=== PATIENT | female | born 1945 | race Caucasian/White ===

== ENCOUNTER 2020-09-29 06:34 | Observation (INO) | payer MEDICARE ==
[2020-09-27 12:54] LABS: BASOPHILS % 0.4 % (0.0-1.0); EOSINOPHILS % 0.6 % (0.0-6.0); HEMATOCRIT 43.4 % (34.2-44.1); LYMPHOCYTES # (AUTO) 1.1 (1.0-3.2); LYMPHOCYTES % 22.2 % (18.0-39.1); MEAN CORPUSCULAR HEMOGLOBIN 31.2 pg (28-32); MEAN CORPUSCULAR HGB CONC 32.3 g/dL (31-35); MEAN CORPUSCULAR VOLUME 96.7 fL (81-99); MONOCYTES # (AUTO) 0.3 (0.2-0.8); MONOCYTES % 6.3 % (4.4-11.3); NEUTROPHILS # (AUTO) 3.6 (2.1-6.9); NEUTROPHILS % 70.3 % (38.7-80.0); PLATELET COUNT 170 x10e3/uL (140-360); RED BLOOD COUNT 4.49 x10e6/uL (3.6-5.1)
[2020-09-27 13:18] LABS: INR 0.94; PROTHROMBIN TIME 13.1 seconds (11.9-14.5)
[2020-09-27 13:19] LABS: PARTIAL THROMBOPLASTIN TIME 24.2 seconds (23.8-35.5)
[2020-09-27 13:24] LABS: ANION GAP 14.1 mmol/L (8-16); BLOOD UREA NITROGEN 15 mg/dL (7-26); BUN/CREATININE RATIO 19 (6-25); CALCIUM 9.1 mg/dL (8.4-10.2); CARBON DIOXIDE 27 mmol/L (22-29); CHLORIDE 106 mmol/L (98-107); CREATININE, SERUM 0.79 mg/dL (0.57-1.11); EST GLOMERULAR FILTRATION RATE > 60 ML/MIN (60-); GLUCOSE 99 mg/dL (74-118); POTASSIUM 4.1 mmol/L (3.5-5.1); SODIUM 143 mmol/L (136-145)
[~2020-09-29] VITALS: Ht 162.6 cm; Wt 71.2 kg
[~2020-09-29 06:34] MED LIST: ACETAMINOPHEN 1000 MG/100 ML 100 ML IV ONE; AMBIEN5 MG PO; ATORVASTATIN CA10 MG PO; CALCIUM PO; CITALOPRAM PO; EFFIENT10 MG PO; FLEXERIL PO; HYDROCODONE PO; LIDOCAINE HCL (LTA) 4 ML SOLN ONE; PRILOSEC40 MG PO; TIZANIDINE HCL4 M1 PO; VITAMIN B12 PO
[2020-09-29] MEDS ORDERED: IBUPROFEN 800MG/ 200ML 200 ML IV ONE (06:37)
[2020-09-29] MEDS ORDERED: LIDOCAINE HCL (LTA) 4 ML SOLN ONE (06:37)
[2020-09-29] MEDS ORDERED: ACETAMINOPHEN 1000 MG/100 ML 100 ML IV ONE (06:37)
[2020-09-29] MEDS ORDERED: BUPIVACAINE 0.5%/EPI 30 ML SDV INJ ONE (06:47)
[2020-09-29] MEDS ORDERED: THROMBIN FOR SOLN 5,000 UNIT VIAL ONE (06:47)
[2020-09-29] MEDS ORDERED: VANCOMYCIN HCL 1 GM VIAL ONE (06:47)
[2020-09-29] MEDS ORDERED: CEFAZOLIN SOD 1 GM/NS 50ML 100 ML IV ONE (07:24)
[2020-09-29] MEDS ORDERED: HYDROCODON-ACE1 EA12 PO (10:28)
[2020-09-29] MEDS ORDERED: ZOLPIDEM TARTRATE 5 MG TAB PO PRN (10:30)
[2020-09-29] MEDS ORDERED: HYDROMORPHONE 2MG/ML 2 MG/ML ML IV PRN (10:30)
[2020-09-29] MEDS ORDERED: MAGNESIUM/ALUMINUM/SIMETHICONE 30 ML UDC PO PRN (10:30)
[2020-09-29] MEDS ORDERED: ACETAMINOPHEN 325 MG TAB PO PRN (10:30)
[2020-09-29] MEDS ORDERED: MORPHINE SULFATE 5 MG/ML VIAL IM PRN (10:30)
[2020-09-29] MEDS ORDERED: ONDANSETRON HCL INJ 2MG/ML 2ML 2 MG/ML VIAL IV PRN (10:30)
[2020-09-29] MEDS ORDERED: PROMETHAZINE HCL (IM) 25 MG/ML VIAL IM PRN (10:30)
[2020-09-29] MEDS ORDERED: CEPACOL SORE THROAT LOZENGES PO PRN (10:30)
[2020-09-29] MEDS ORDERED: MORPHINE SULFATE INJ 4 MG/ML INJ 1ML ONE (10:47)
[2020-09-29] MEDS ORDERED: ALBUTEROL/IPRATROPIUM 3 ML NEB ONE (10:51)
[2020-09-29] MEDS ORDERED: EPINEPHRINE 2.25% INH NEBU SOL 0.5 ML VIAL ONE (10:54)
[2020-09-29] MEDS ORDERED: LIDOCAINE HCL 2% LOCAL INJ 5 ML SDV VIAL INJ ONE (12:43)
[2020-09-29] MEDS ORDERED: SEVOFLURANE INHAL SOLN 250 ML PEN BTL ONE (12:43)
[2020-09-29] MEDS ORDERED: ONDANSETRON HCL INJ 2MG/ML 2ML 2 MG/ML VIAL ONE (12:43)
[2020-09-29] MEDS ORDERED: DEXAMETHASONE SOD PHOS INJ 4 MG/ML VIAL ONE (12:43)
[2020-09-29] MEDS ORDERED: ROCURONIUM BROMIDE 10 MG/ML 5ML VIAL IV ONE (12:43)
[2020-09-29] MEDS ORDERED: NEOSTIGMINE 1 MG/ML 10ML VIAL ONE (12:43)
[2020-09-29] MEDS ORDERED: PROPOFOL IV EMULSION 10 MG/ML 20 ML VIAL ONE (12:43)
[2020-09-29] MEDS ORDERED: GLYCOPYRROLATE INJ 0.2 MG/ML VIAL ONE (12:43)
[2020-09-29] MEDS ORDERED: FENTANYL CITRATE/PF 100MCG/2 ML INJ ONE (13:47)
[2020-09-29] MEDS ORDERED: CARISOPRODOL 350 MG TAB ONE (14:28)
[2020-09-29] MEDS: OXYCODONE/ACETAMINOPHEN 5-325 1 EACH TABLET PO PRN ×3 (14:28→23:10)
[2020-09-29] MEDS: CARISOPRODOL 350 MG TAB PO PRN ×2 (14:28→18:30)
[2020-09-29] MEDS ORDERED: OXYCODONE/ACETAMINOPHEN 5-325 1 EACH TABLET ONE (14:28)
[2020-09-29 15:17] VITALS: BP 132/70
[2020-09-29] MEDS: CEFAZOLIN SOD 1 GM/NS 50ML 50 ML IV SCH (17:20)
[2020-09-29] MEDS: LACTATED RINGER'S 1,000 ML IV SCH ×2 (17:20→18:50)
[2020-09-29 19:25] VITALS: BP 108/76
[2020-09-29 21:00] VITALS: BP 108/76
[2020-09-29] MEDS ORDERED: ZOLPIDEM TARTRATE 5 MG TAB PO SCH (21:00)
[2020-09-29] MEDS ORDERED: TIZANIDINE HCL 4 MG TAB PO SCH (21:00)
[2020-09-30] VITALS: BP 95/65
[2020-09-30] MEDS: CEFAZOLIN SOD 1 GM/NS 50ML 50 ML IV SCH ×2 (01:00→09:00)
[2020-09-30] MEDS: LACTATED RINGER'S 1,000 ML IV SCH (03:10)
[2020-09-30 04:00] VITALS: BP 92/57
[2020-09-30 08:30] VITALS: BP 108/61
[2020-09-30 08:39] VITALS: BP 108/61
[2020-09-30] MEDS ORDERED: ATORVASTATIN 10 MG TAB PO SCH ×2 (09:00→21:00)
[2020-09-30] MEDS: OXYCODONE/ACETAMINOPHEN 5-325 1 EACH TABLET PO PRN (09:27)
[2020-09-30] MEDS ORDERED: ZOLPIDEM TARTRATE 5 MG TAB PO PRN (12:15)
[2020-09-30 12:29] VITALS: BP 106/70
== END 2020-09-30 12:18 | disposition home or self-care (01) ==
LOC: OR 06:34 → PACU V 10:26 → MED/SURG3 15:00
PROVIDERS: ADMIT Neurological Surgery; ATTEND Neurological Surgery
DX: M51.16 Intervertebral disc disorders with radiculopathy, lumbar region (principal); Z20.822 Contact with and (suspected) exposure to COVID-19; Z01.818 Encounter for other preprocedural examination; M19.90 Unspecified osteoarthritis, unspecified site; E78.5 Hyperlipidemia, unspecified; I25.10 Atherosclerotic heart disease of native coronary artery without angina pectoris; Z95.5 Presence of coronary angioplasty implant and graft
CPT/HCPCS: 36415 ×2; 63047; 71046; 72020; 80048; 82948; 85025; 85610; 85730; 86850; 86900; 88304; 93005; G0378 ×2; J0131; J0690 ×2; J1100; J2001; J2270; J2405; J2704; J2710; J3370; J7121; U0002

== ENCOUNTER 2021-03-30 05:53 | Observation (INO) | payer MEDICARE ==
[2021-03-28 09:49] LABS: BASOPHILS % 0.6 % (0.0-1.0); EOSINOPHILS # (AUTO) 0.1 (0.0-0.4); EOSINOPHILS % 1.3 % (0.0-6.0); HEMATOCRIT 44.7 % (34.2-44.1); HEMOGLOBIN 14.6 g/dL (12.0-16.0); LYMPHOCYTES % 22.5 % (18.0-39.1); MEAN CORPUSCULAR HEMOGLOBIN 32.7 pg (28-32); MEAN CORPUSCULAR HGB CONC 32.7 g/dL (31-35); MONOCYTES # (AUTO) 0.4 (0.2-0.8); MONOCYTES % 9.1 % (4.4-11.3); NEUTROPHILS # (AUTO) 3.1 (2.1-6.9); NEUTROPHILS % 66.3 % (38.7-80.0); PLATELET COUNT 180 x10e3/uL (140-360); RED BLOOD COUNT 4.47 x10e6/uL (3.6-5.1); RED CELL DISTRIBUTION WIDTH 13.2 % (11.7-14.4)
[2021-03-28 10:18] LABS: CALCIUM 9.5 mg/dL (8.4-10.2); CREATININE, SERUM 0.91 mg/dL (0.57-1.11)
[2021-03-28 10:55] LABS: INR 0.93; PROTHROMBIN TIME 12.7 seconds (11.9-14.5)
[~2021-03-30] VITALS: Ht 162.6 cm; Wt 70.8 kg
[~2021-03-30 05:53] MED LIST changes: -ACETAMINOPHEN 1000 MG/100 ML 100 ML IV ONE; +HYDROCODON-ACE1 EA12 PO; -LIDOCAINE HCL (LTA) 4 ML SOLN ONE; +VIT D3 PO; +ZINC50 MG PO
[2021-03-30] MEDS ORDERED: SODIUM CHLORIDE 0.9% 50ML 50 ML ONE (06:40)
[2021-03-30] MEDS ORDERED: Vancomycin IV 1 GM VIAL ONE (07:11)
[2021-03-30] MEDS ORDERED: LIDOCAINE 1% W/EPINEPHRINE 20 ML VIAL ONE (07:11)
[2021-03-30] MEDS ORDERED: THROMBIN FOR SOLN 5,000 UNIT VIAL ONE (07:11)
[2021-03-30] MEDS ORDERED: LIDOCAINE HCL (LTA) 4 ML SOLN ONE (08:38)
[2021-03-30] MEDS ORDERED: SUGAMMADEX SODIUM 200 MG/2 ML VIAL IV ONE ×2 (09:14→09:34)
[2021-03-30] MEDS ORDERED: HYDROCODON-ACE1 EA12 PEG (09:36)
[2021-03-30] MEDS ORDERED: OXYCODONE/ACETAMINOPHEN 5-325 1 EACH TABLET PO PRN (09:45)
[2021-03-30] MEDS ORDERED: ZOLPIDEM TARTRATE 5 MG TAB PO PRN (09:45)
[2021-03-30] MEDS ORDERED: HYDROCODONE/APAP 7.5MG-325MG 1 EA TAB PO PRN (09:45)
[2021-03-30] MEDS ORDERED: CARISOPRODOL 350 MG TAB PO PRN (09:45)
[2021-03-30] MEDS ORDERED: CEPACOL SORE THROAT LOZENGES PO PRN (09:45)
[2021-03-30] MEDS ORDERED: MAGNESIUM/ALUMINUM/SIMETHICONE 30 ML UDC PO PRN (09:45)
[2021-03-30] MEDS ORDERED: PROMETHAZINE HCL (IM) 25 MG/ML VIAL IM PRN (09:45)
[2021-03-30] MEDS ORDERED: ACETAMINOPHEN 325 MG TAB PO PRN (09:45)
[2021-03-30] MEDS ORDERED: ONDANSETRON HCL INJ 2MG/ML 2ML 2 MG/ML VIAL IV PRN (09:45)
[2021-03-30] MEDS ORDERED: FENTANYL CITRATE/PF 100MCG/2 ML INJ ONE (09:58)
[2021-03-30] MEDS: LACTATED RINGER'S 1,000 ML IV SCH ×2 (10:43→17:35)
[2021-03-30] MEDS ORDERED: MORPHINE SULFATE INJ 4 MG/ML INJ 1ML IM PRN (10:45)
[2021-03-30] MEDS: HYDROMORPHONE 2MG/ML 2 MG/ML ML IV PRN ×2 (10:56→17:45)
[2021-03-30 11:20] VITALS: BP 145/80
[2021-03-30 11:31] VITALS: BP 138/74
[2021-03-30 13:54] VITALS: BP 138/74
[2021-03-30] MEDS: Cefazolin 1 GM in SODIUM CHLORIDE 0.9% 50ML 50 ML IV SCH ×2 (14:21→22:56)
[2021-03-30 16:07] VITALS: BP 127/75
[2021-03-30 20:00] VITALS: BP 131/77
[2021-03-30] MEDS ORDERED: TIZANIDINE HCL 4 MG TAB PO SCH (21:00)
[2021-03-30] MEDS ORDERED: ATORVASTATIN 10 MG TAB PO SCH (21:00)
[2021-03-31] VITALS: BP 128/77
[2021-03-31 01:40] VITALS: BP 127/77
[2021-03-31 04:00] VITALS: BP 122/76
[2021-03-31] MEDS: LACTATED RINGER'S 1,000 ML IV SCH (04:48)
[2021-03-31] MEDS: Cefazolin 1 GM in SODIUM CHLORIDE 0.9% 50ML 50 ML IV SCH (06:09)
[2021-03-31 08:39] VITALS: BP 116/70
[2021-03-31 10:31] VITALS: BP 116/70
== END 2021-03-31 10:53 | disposition home or self-care (01) ==
LOC: OR 05:53 → PACU V 10:03 → MED/SURG 10:18
PROVIDERS: ADMIT Neurological Surgery; ATTEND Neurological Surgery
DX: M43.12 Spondylolisthesis, cervical region (principal); E78.5 Hyperlipidemia, unspecified; J32.9 Chronic sinusitis, unspecified; I25.10 Atherosclerotic heart disease of native coronary artery without angina pectoris; Z95.5 Presence of coronary angioplasty implant and graft; Z87.891 Personal history of nicotine dependence; Z01.810 Encounter for preprocedural cardiovascular examination; Z01.812 Encounter for preprocedural laboratory examination; Z01.818 Encounter for other preprocedural examination
CPT/HCPCS: 20931; 22551; 22845; 36415; 71046; 72040; 80048; 85025; 85610; 85730; 86850; 86900; 88304; 93005; C1713 ×5; C1763; G0378 ×2; J0690 ×2; J1170; J3010; J3370; J7121 ×2; U0002; 77003; 88311

== ENCOUNTER → 2021-04-24 | Outpatient (CLI) | payer MEDICARE ==
[~2021-04-24] MED LIST changes: +HYDROCODON-ACE1 EA12 PEG
== END ==
LOC: RAD 10:14
PROVIDERS: ATTEND Neurological Surgery
DX: M50.20 Other cervical disc displacement, unspecified cervical region (principal); M43.22 Fusion of spine, cervical region
CPT/HCPCS: 72050

== ENCOUNTER 2022-04-03 13:00 | Outpatient (RCR) | payer MEDICARE | END 2022-04-04 | LOC: PT 13:00 | PROVIDERS: ATTEND Specialist | DX: M70.61 Trochanteric bursitis, right hip (principal) ==

== ENCOUNTER 2022-05-02 13:51 | Outpatient (RCR) | payer MEDICARE | END 2022-05-04 | LOC: PT 13:51 | PROVIDERS: ATTEND Specialist | DX: M70.61 Trochanteric bursitis, right hip (principal); M25.551 Pain in right hip; M62.81 Muscle weakness (generalized) ==

== ENCOUNTER 2022-05-21 11:00 | Outpatient (RCR) | payer MEDICARE | END 2022-06-04 | LOC: PT 11:00 | PROVIDERS: ATTEND Specialist | DX: M70.61 Trochanteric bursitis, right hip (principal) ==